=== PATIENT | female | born 1995 | race Hispanic/Latino ===

== ENCOUNTER 2017-08-08 03:34 | Emergency (ER) | payer BC, OTHER ==
[2017-08-08 03:47] VITALS: BMI 45.3
[2017-08-08 03:56] VITALS: BP 132/90; PULSE 107; RESP 17; TEMP 98.1; O2SAT 98
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
== END 2017-08-08 06:38 | disposition home or self-care (01) ==
LOC: ED 03:34
DX: S16.1XXA Strain of muscle, fascia and tendon at neck level, initial encounter (principal); S00.33XA Contusion of nose, initial encounter; S96.912A Strain of unspecified muscle and tendon at ankle and foot level, left foot, initial encounter; S00.31XA Abrasion of nose, initial encounter; V49.9XXA Car occupant (driver) (passenger) injured in unspecified traffic accident, initial encounter